=== PATIENT | male | born 1975 | race Caucasian/White ===

== ENCOUNTER 2023-08-08 09:05 | Emergency (ER) | payer MEDICAID ==
[~2023-08-08] VITALS: Ht 167.6 cm; Wt 62.6 kg
[~2023-08-08 09:05] MED LIST: AMOX1TAB8 PO
[2023-08-08 09:23] VITALS: BP 148/82; PULSE 73; RESP 18; TEMP 98.9; O2SAT 99
[2023-08-08] MEDS ORDERED: CETI10SG1 PO (10:49)
[2023-08-08] MEDS ORDERED: IBUP-2213 PO (10:49)
[2023-08-08] MEDS: KETOROLAC 30 MG/ML VIAL IM ONE (11:07)
== END 2023-08-08 11:10 | disposition home or self-care (01) ==
LOC: MED 09:05
DX: J06.9 Acute upper respiratory infection, unspecified (principal); R03.0 Elevated blood-pressure reading, without diagnosis of hypertension; Z79.899 Other long term (current) drug therapy; Z90.49 Acquired absence of other specified parts of digestive tract
CPT/HCPCS: 96372; 99283; J1885